=== PATIENT | male | born 1960 | race Native Hawaiian/Other Pacific Islander ===

== ENCOUNTER 2021-10-01 15:46 | Emergency (ER) | payer OTHER ==
[~2021-10-01] VITALS: Ht 182.9 cm; Wt 77.1 kg
[2021-10-01 15:58] VITALS: BP 121/94; TEMP 97.7
[2021-10-01 17:02] LABS: POTASSIUM 3.2 mmol/L (3.6-5.2)
[2021-10-01 17:04] LABS: PLATELET COUNT 160 K/uL (142-355)
== END 2021-10-01 17:26 | disposition home or self-care (01) ==
LOC: ED 15:46
PROVIDERS: Emergency Medicine
DX: R07.89 Other chest pain (principal); I49.3 Ventricular premature depolarization; E87.6 Hypokalemia; M54.50 Low back pain, unspecified
CPT/HCPCS: 80053; 80307; 80320; 82550; 83880; 84484; 85027; 93005; 99283

== ENCOUNTER 2022-01-13 08:12 | Outpatient (CLI) | payer OTHER ==
[~2022-01-13] VITALS: Ht 182.9 cm; Wt 77.1 kg
== END 2022-01-13 19:26 | disposition home or self-care (01) ==
LOC: NM 08:12
PROVIDERS: ATTEND Nurse Practitioner Primary Care
DX: I49.3 Ventricular premature depolarization (principal)
CPT/HCPCS: A9500; J2785